=== PATIENT | female | born 1990 | race Two or more races ===

== ENCOUNTER 2016-11-17 23:22 | Emergency (ER) | payer SELFPAY ==
[~2016-11-17] VITALS: Ht 157.5 cm; Wt 81.6 kg
[2016-11-17] MEDS ORDERED: NKM (23:33)
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
[2016-11-18] MEDS ORDERED: Lidocaine 1% Plain 30 ml INJ ONE
[2016-11-18] MEDS ORDERED: Tetanus/Diptheria/Pertussis Vaccine 0.5ml Syr IM ONE
[2016-11-18] MEDS ORDERED: Bacitracin Oint UD TOPIC ONE ×2 (00:36→00:45)
[2016-11-18 00:47] VITALS: BP_SYST 122; BP_SYST 132; BP_DIAS 80; BP_DIAS 91
== END 2016-11-18 00:48 | disposition home or self-care (01) ==
LOC: EMR 23:45
DX: S61.412A Laceration without foreign body of left hand, initial encounter (principal); V43.52XA Car driver injured in collision with other type car in traffic accident, initial encounter; Y92.410 Unspecified street and highway as the place of occurrence of the external cause; Z23 Encounter for immunization
CPT/HCPCS: 12002; 90471; 90715; 99283; J2001

== ENCOUNTER 2016-12-02 16:32 | Emergency (ER) | payer SELFPAY ==
[~2016-12-02] VITALS: Ht 157.5 cm; Wt 81.6 kg
[~2016-12-02 16:32] MED LIST: NKM
[2016-12-02 16:44] VITALS: BP 139/86
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
[2016-12-02] MEDS ORDERED: MEDERMA20 GM TP (16:57)
[2016-12-02 17:42] VITALS: BP 139/86
== END 2016-12-02 17:50 | disposition home or self-care (01) ==
LOC: EMR 17:35
DX: Z48.02 Encounter for removal of sutures (principal)
CPT/HCPCS: 99281